=== PATIENT | female | born 1975 | race Caucasian/White ===

== ENCOUNTER 2020-05-23 05:25 | Emergency (ER) | payer OTHER ==
[~2020-05-23] VITALS: Ht 162.6 cm; Wt 88.0 kg
[~2020-05-23 05:25] MED LIST: ACET-3457 PO
--- NOTE | 2020-05-23 05:25 | NUR ---
PT MONALISA SWEET. TAKEN TO BED 11
[2020-05-23 05:30] VITALS: BP 151/90
--- NOTE | 2020-05-23 05:42 | NUR ---
Dr. Garcia examining patient.
--- NOTE | 2020-05-23 05:48 | NUR ---
PT SAID SHE WOKE UP THIS MORNING AROUND 2AM AND HAD BLOOD ALL OVER HER FACE, SHIRT, AND SHEETS. ACTIVE BLEEDING FROM HER MOUTH. PT DENIES ANY INJURY. BLEEDING NOTED TO LEFT SIDE OF MOUTH, NO LACERATION NOTED TO GUMS, SWELLING TO INSIDE OF MOUTH AND LEFT SIDE OF FACE. PT C/O HEADACHE BUT DENIES MOUTH PAIN OR TOOTHACHE. BED IN LOWEST POSITION AND SIDERAIL UP X 1. NKA HX - DENIES NO MEDS
--- NOTE | 2020-05-23 05:53 | NUR ---
PT'S , RADHA, CALLED WANTING TO LEAVE HIS NUMBER FOR WHEN PT GETS DISCHARGED. RADHA [phone]
--- NOTE | 2020-05-23 06:00 | NUR ---
BLOOD COLLECTED AND WALKED TO LAB
[2020-05-23 06:24] LABS: BASOPHILS # (AUTO) 0.1 K/uL (0.00-0.22); BASOPHILS % (AUTO) 0.8 % (0.0-2.0); EOSINOPHILS # (AUTO) 0.3 K/uL (0-0.4); HEMATOCRIT 38.9 % (36-48); HEMOGLOBIN 13.1 g/dL (12.0-16.0); LYMPHOCYTES # (AUTO) 2.2 K/uL (2.5-16.5); LYMPHOCYTES % (AUTO) 27.3 % (20.5-51.1); MEAN CORPUSCULAR HEMOGLOBIN 30 pg (27-31); MEAN CORPUSCULAR HGB CONC 34 g/dL (33-37); MEAN CORPUSCULAR VOLUME 87.6 fL (80-94); MONOCYTES # (AUTO) 0.5 K/uL (0.8-1.0); MONOCYTES % (AUTO) 5.5 % (1.7-9.3); NEUTROPHILS # (AUTO) 5.1 K/uL (1.8-7.7); NEUTROPHILS % (AUTO) 62.4 % (42.2-75.2); PLATELET COUNT (AUTO) 285 K/uL (140-450); RED BLOOD CELL COUNT(AUTO) 4.44 MIL/uL (4.20-5.40); RED CELL DISTRIBUTION WIDTH 13.6 % (11.6-13.7); WHITE BLOOD COUNT (AUTO) 8.2 K/uL (4.8-10.8)
[2020-05-23 06:41] LABS: PROTHROMBIN TIME 9.6 secs (10.8-13.4)
[2020-05-23 06:46] LABS: ALBUMIN 3.6 g/dL (3.4-5.0); ANION GAP 11.4 (8-16); CREATININE 0.6 mg/dL (0.6-1.3); POTASSIUM 3.4 mmol/L (3.5-5.1); TOTAL BILIRUBIN 0.2 mg/dL (0.0-1.0)
--- NOTE | 2020-05-23 06:47 | NUR ---
NO MORE BLEEDING FROM MOUTH. MD BISHOP AT BEDSIDE SPEAKING WITH PT.
[2020-05-23] MEDS ORDERED: ACETAMINOPHEN EXTRA STRENGTH 500 MG TAB ONE (07:02)
[2020-05-23] MEDS ORDERED: ACETAMINOPHEN EXTRA STRENGTH 500 MG TAB PO ONE (07:05)
--- NOTE | 2020-05-23 07:05 | NUR ---
PT REQUESTING MED FOR HEADACHE, TYLENOL GIVEN.
[2020-05-23 07:06] VITALS: BP 148/89
--- NOTE | 2020-05-23 07:07 | NUR ---
Patient discharged with v/s stable. Written and verbal after care instructions given and explained. Patient verbalized understanding. Ambulatory with steady gait. All questions addressed prior to discharge. Advised to follow up with PMD.
== END 2020-05-23 07:07 | disposition home or self-care (01) ==
LOC: MED 05:25
DX: K05.10 Chronic gingivitis, plaque induced (principal); R03.0 Elevated blood-pressure reading, without diagnosis of hypertension; Z79.899 Other long term (current) drug therapy
CPT/HCPCS: 36415; 80053; 85025; 85610; 85730; 99283